=== PATIENT | female | born 1965 | race Caucasian/White ===

== ENCOUNTER → 2016-07-06 | Outpatient (REF) | payer BC, OTHER ==
[~2016-07-06] MED LIST: ALBU17IN2 INH; ALBU83IN INH; E-ZMIS3 XX; EXCETAB80 PO; HCTZ PO; LISI-542 PO; MULTCAP PO; PRED20TA PO; PROA1AER IN; SUDA1TAB3 PO; ZYRT10CA PO
== END ==
LOC: M LAB REF 16:33
PROVIDERS: ATTEND Physician Assistant
DX: J02.9 Acute pharyngitis, unspecified (principal)

== ENCOUNTER 2016-07-09 15:22 | Emergency (ER) | payer BC, OTHER ==
[~2016-07-09] VITALS: Ht 160 cm; Wt 106.6 kg
[~2016-07-09 15:22] MED LIST changes: -ALBU17IN2 INH; -ALBU83IN INH; -E-ZMIS3 XX; -PRED20TA PO; -SUDA1TAB3 PO; -ZYRT10CA PO
[2016-07-09] MEDS ORDERED: ZYRT10CA PO (15:32)
[2016-07-09] MEDS ORDERED: SUDA1TAB3 PO (15:32)
[2016-07-09] MEDS ORDERED: ALBUTEROL SULFATE 2.5 MG/0.5 ML INH NEB SOLN INH ONE (16:45)
[2016-07-09] MEDS ORDERED: ASPIRIN 81 MG CHEW TABLET PO ONE (16:45)
[2016-07-09] MEDS ORDERED: IPRATROPIUM 0.5MG/ALBUTEROL 2.5MG INH SOL UD 3ML (DUONEB)(J7620) NEB ONE ×2 (16:45→18:15)
[2016-07-09] MEDS: ONDANSETRON 4MG/2ML VIAL (J2405) IV ONE ×2 (16:45→16:59)
[2016-07-09 16:59] LABS: BASO % 0.4 % (0.0-1.0); EOS # 0.1 K/mm3 (0.0-0.50); EOS % 1.4 % (0.0-3.0); LARGE UNSTAINED CELL # 0.1 K/mm3 (0.0-0.4); LARGE UNSTAINED CELL % 1.3 % (0.0-4.0); LYMPH # 0.8 K/mm3 (1.5-4.5); LYMPH % 15.3 % (24.0-44.0); MEAN CORPUSCULAR HEMOGLOBIN 29.9 pg (27.0-33.0); MEAN CORPUSCULAR HGB CONC 33.8 g/dl (32.0-36.5); MEAN CORPUSCULAR VOLUME 88.5 fl (80.0-96.0); MONO # 0.2 K/mm3 (0.0-0.8); NEUTROPHILS # 3.6 K/mm3 (1.8-7.7); NEUTROPHILS % 76.5 % (36.0-66.0); PLATELET COUNT, AUTOMATED 131 k/mm3 (150-450); RED CELL DISTRIBUTION WIDTH 14.8 % (11.5-14.5); WHITE BLOOD COUNT 4.7 K/mm3 (4.0-10.0)
[2016-07-09 17:10] LABS: ABG BASE EXCESS 0.9 (-2.0-2.0); ABG HCO3 24.3 MEQ/L (22.0-26.0); ABG PARTIAL PRESSURE CO2 35.2 mmHg (35.0-45.0); ABG PARTIAL PRESSURE O2 61.6 mmHg (75.0-100.0); ABG STANDARD HCO3 25.2 MEQ/L (22.0-26.0); ABG TOTAL CO2 25.4 MEQ/L (22.0-29.0); ABG pH (ARTERIAL) 7.457 UNITS (7.350-7.450)
[2016-07-09 17:13] LABS: ANION GAP 8 MEQ/L (8-16); BLOOD UREA NITROGEN 8 MG/DL (7-18); CALCIUM LEVEL 9.2 MG/DL (8.5-10.1); CARBON DIOXIDE LEVEL 30 MEQ/L (21-32); CHLORIDE LEVEL 101 MEQ/L (98-107); CREATININE FOR GFR 0.88 MG/DL (0.55-1.02); GLOMERULAR FILTRATION RATE > 60.0 (>51); GLUCOSE, FASTING 91 MG/DL (70-105); SODIUM LEVEL 139 MEQ/L (136-145)
[2016-07-09 17:15] LABS: POTASSIUM SERUM 3.5 MEQ/L (3.5-5.1)
--- NOTE | 2016-07-09 17:31 | REP ---
Chest x-ray: Two views: History: Chest pain. Comparison chest x-rays from 06/06/2015. Findings: EKG monitoring electrodes overlie the chest. Heart is not enlarged. Lungs are symmetrically aerated and clear. Pulmonary vasculature is not increased. Pleural angles are sharp. Mild degenerative changes are seen in the thoracic spine. Impression: No acute disease. Signed by Adi Johnson MD 07/10/2016 11:21 A
[2016-07-09] MEDS ORDERED: MAG SULF 1GM/100ML (MAG RUN) 1 GM in APPROPRIATE DILUENT 1 EA IV ONE (18:15)
[2016-07-09] MEDS ORDERED: methylPREDNISolone INJ 125 MG/2 ML VIAL (J2930) IV ONE (18:15)
[2016-07-09] MEDS ORDERED: ALBU17IN2 INH (19:41)
[2016-07-09] MEDS ORDERED: E-ZMIS3 XX (19:41)
[2016-07-09] MEDS ORDERED: ALBU83IN INH (19:41)
[2016-07-09] MEDS ORDERED: PRED20TA PO (19:41)
[2016-07-09 19:49] VITALS: BP 130/71
--- NOTE | 2016-07-11 16:30 | ECGEPIP ---
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
== END 2016-07-09 19:55 | disposition home or self-care (01) ==
LOC: M ED 16:35
DX: J45.909 Unspecified asthma, uncomplicated (principal); I10 Essential (primary) hypertension; F17.210 Nicotine dependence, cigarettes, uncomplicated; Z79.899 Other long term (current) drug therapy
CPT/HCPCS: 36415; 36600; 71020; 80048; 82550; 82553; 82803; 85025; 93005; 93041; 94640; 96361; 96374; 96375; 99285; J2405; J2930; J3475

== ENCOUNTER 2017-04-19 22:00 | Emergency (ER) | payer BC, OTHER | END 2017-04-19 23:54 | disposition home or self-care (01) | LOC: M ED 22:00 | DX: S06.0X9A Concussion with loss of consciousness of unspecified duration, initial encounter (principal); W18.12XA Fall from or off toilet with subsequent striking against object, initial encounter; Y92.002 Bathroom of unspecified non-institutional (private) residence as the place of occurrence of the external cause; J45.909 Unspecified asthma, uncomplicated; I10 Essential (primary) hypertension; K58.9 Irritable bowel syndrome, unspecified; F17.210 Nicotine dependence, cigarettes, uncomplicated; Z79.899 Other long term (current) drug therapy | CPT/HCPCS: 70450 ==

== ENCOUNTER → 2017-07-27 | Outpatient (REF) | payer OTHER | LOC: M SFHCWAGY 09:34 | DX: Z12.4 Encounter for screening for malignant neoplasm of cervix (principal) | CPT/HCPCS: G0123 ==

== ENCOUNTER → 2017-07-27 | Outpatient (CLI) | payer BC | LOC: M WHC 08:59 | DX: Z12.31 Encounter for screening mammogram for malignant neoplasm of breast (principal) | CPT/HCPCS: 77067 ==

== ENCOUNTER → 2017-08-02 | Outpatient (CLI) | payer BC | LOC: M WHC 12:52 | DX: Z80.41 Family history of malignant neoplasm of ovary (principal); D25.9 Leiomyoma of uterus, unspecified | CPT/HCPCS: 76830 ==

== ENCOUNTER → 2018-08-01 | Outpatient (CLI) | payer BC ==
[~2018-08-01] MED LIST changes: +ALBU17IN2 INH; +ALBU83IN INH; +E-ZMIS3 XX; +LISI-542; +PRED20TA PO; -PROA1AER IN; +PROAAER10 IN; +SUDA1TAB3 PO; +ZYRT10CA PO
--- NOTE | 2018-08-01 10:11 | REPMRS ---
Patient History The patient states she had a clinical breast exam in 07/2018. Patient is postmenopausal. Family history of ovarian cancer at age 26 in paternal grandmother, ovarian cancer at age 50 or over in paternal aunt, breast cancer under age 50 in paternal cousin. 3D TOMOSYNTHESIS WAS PERFORMED. Digital Woman Screen Mammo: August 01, 2018 - Exam #: [id number] Bilateral CC and MLO view(s) were taken. Technologist: Beata Aguirre Technologist Prior study comparison: July 27, 2017, digital woman screen mammo performed at [facility]. May 24, 2015, digital woman screen mammo performed at [facility]. FINDINGS: There are scattered fibroglandular densities. There has been no change in the appearance of the mammogram from the prior studies. There is a mild amount of residual fibroglandular tissue which is fairly symmetric. There is no interval development of dominant mass, architectural distortion, or clustered microcalcification suggestive of malignancy. Assessment: BI-RADS/ACR category 1 mammogram. Negative Mammogram. Recommendation Routine screening mammogram in 1 year (for women over age 40). This mammogram was interpreted with the aid of an FDA-approved computer-aided dectection system. Electronically Signed By: Herb Sparks MD 08/01/18 [id number]
== END ==
LOC: M WHC 08:26
PROVIDERS: ATTEND Nurse Practitioner Family
DX: Z12.31 Encounter for screening mammogram for malignant neoplasm of breast (principal); Z78.0 Asymptomatic menopausal state